=== PATIENT | female | born 1965 | race Caucasian/White ===

== ENCOUNTER 2020-06-11 13:26 | Outpatient (CLI) | payer OTHER, SELFPAY | END 2020-06-11 13:27 | disposition home or self-care (01) | LOC: ANHCOVIDVC 13:26 | PROVIDERS: PCP Internal Medicine | DX: Z23 Encounter for immunization (principal) | CPT/HCPCS: 0001A; 91300 ==

== ENCOUNTER 2020-07-02 13:29 | Outpatient (CLI) | payer MEDICARE, MEDICAID, SELFPAY | END 2020-07-02 13:30 | disposition home or self-care (01) | LOC: ANHCOVIDVC 13:29 | PROVIDERS: PCP Internal Medicine | DX: Z23 Encounter for immunization (principal) | CPT/HCPCS: 0002A; 91300 ==